=== PATIENT | female | born 1990 | race Caucasian/White ===

== ENCOUNTER 2019-01-06 01:55 | Emergency (ER) | payer BC, MEDICAID ==
[~2019-01-06] VITALS: Ht 165.1 cm; Wt 81.6 kg
[2019-01-06 01:59] VITALS: BP 164/99
--- NOTE | 2019-01-06 02:09 | NUR ---
TO ER BED 7
[2019-01-06] MEDS ORDERED: NACL 0.9% 1,000 ML IV ONE (02:10)
--- NOTE | 2019-01-06 02:24 | NUR ---
EKG PERFORMED AT BEDSIDE WITH SPOUSE PRESENT. PT COVERED IN GOWN DURING PROCEDURE.
--- NOTE | 2019-01-06 02:25 | NUR ---
28/F PRESENTS TO ED WITH GIRLFRIEND, C/O 5/10 INTERMITTENT CHEST HEAVINESS AND SOB, X3 HRS. PT REPORTS HAVING SIMILAR EPISODE BEFORE WHEN TAKING DIET PILLS. PT REPORTS DRINKING ENERGY DRINKS YESTERDAY AND TODAY. DENIES ALCOHOL OR SUBSTANCE ABUSE. PT DENIES FEVER, ABD PAIN OR DYSURIA. PT REPORTS CHILLS AND NAUSEA. PT AOX4, GCS 15, RR EVEN AND UNLABORED. LUNG SOUNDS CLEAR BL. PLACED ON MONITOR. HX HTN, ASTHMA
--- NOTE | 2019-01-06 02:25 | NUR ---
ER MD AT BEDSIDE. PT REFUSED ZOFRAN AND TORADOL DESPITE EDUCATION.
[2019-01-06 03:12] VITALS: BP 140/75
--- NOTE | 2019-01-06 03:12 | NUR ---
PT STATED THAT SHE FEELS BETTER, DENIES CP, VS NOTED, HR 84. PT REFUSED TO FINISH IVF DESPITE EDUCATION. PT INSTRUCTED TO DRINK MORE FLUIDS.
--- NOTE | 2019-01-06 03:12 | NUR ---
Patient discharged with v/s stable. Written and verbal after care instructions given and explained. Patient alert, oriented and verbalized understanding of instructions. Ambulatory with steady gait. All questions addressed prior to discharge. ID band removed. Patient advised to follow up with PMD. Rx of MOTRIN, ZOFRAN given. Patient educated on indication of medication including possible reaction and side effects. Opportunity to ask questions provided and answered.
== END 2019-01-06 03:12 | disposition home or self-care (01) ==
LOC: MED 01:55
DX: R07.9 Chest pain, unspecified (principal); R06.02 Shortness of breath; R00.2 Palpitations; J45.909 Unspecified asthma, uncomplicated; I10 Essential (primary) hypertension; F17.210 Nicotine dependence, cigarettes, uncomplicated; Z98.890 Other specified postprocedural states
CPT/HCPCS: 93005; 99283; J7030

== ENCOUNTER 2019-10-12 12:39 | Emergency (ER) | payer BC, MEDICAID ==
[~2019-10-12] VITALS: Ht 165.1 cm; Wt 90.7 kg
[2019-10-12 12:44] VITALS: BP 147/115
[2019-10-12 13:45] VITALS: BP 147/115
== END 2019-10-12 13:50 | disposition home or self-care (01) ==
LOC: MED 12:39
DX: S20.20XA Contusion of thorax, unspecified, initial encounter (principal); F41.9 Anxiety disorder, unspecified; M79.10 Myalgia, unspecified site; J45.909 Unspecified asthma, uncomplicated; I10 Essential (primary) hypertension; F17.210 Nicotine dependence, cigarettes, uncomplicated; Z98.890 Other specified postprocedural states; V49.9XXA Car occupant (driver) (passenger) injured in unspecified traffic accident, initial encounter; Y99.8 Other external cause status; Y93.89 Activity, other specified; Y92.89 Other specified places as the place of occurrence of the external cause
CPT/HCPCS: 71046; 93005; 99283

== ENCOUNTER 2021-09-17 00:53 | Emergency (ER) | payer BC, OTHER ==
[~2021-09-17] VITALS: Ht 167.6 cm; Wt 90.7 kg
[2021-09-17 01:01] VITALS: BP 181/111
--- NOTE | 2021-09-17 01:01 | NUR ---
TO CHAIR B AMBULATORY
--- NOTE | 2021-09-17 01:10 | NUR ---
SEEN AND EXAMINED BY HONORIO WITH ORDERS , CARRIED OUT
--- NOTE | 2021-09-17 01:15 | NUR ---
RT ADMINISTERING BREATHING TREATMENT
[2021-09-17] MEDS ORDERED: ALBUTEROL SULFATE/IPRATROPIU 3 ML SOL IH ONE ×3 (01:20→01:25)
[2021-09-17] MEDS ORDERED: methylPREDNISolone SS 125 MG/2 ML VIAL IVP ONE (01:25)
--- NOTE | 2021-09-17 01:25 | NUR ---
SWAB FOR KWESI , SENT TO LAB
--- NOTE | 2021-09-17 01:27 | NUR ---
MEDICATED PER ERMDS ORDER, TOLERATED WELL.
[2021-09-17 01:50] LABS: BASOPHILS % (AUTO) 0.4 % (0.0-2.0); EOSINOPHILS # (AUTO) 0.2 K/uL (0-0.4); EOSINOPHILS % (AUTO) 1.4 % (0.0-4.0); HEMATOCRIT 39.4 % (36-48); HEMOGLOBIN 13.2 g/dL (12.0-16.0); LYMPHOCYTES # (AUTO) 2.1 K/uL (2.5-16.5); MEAN CORPUSCULAR HEMOGLOBIN 31 pg (27-31); MEAN CORPUSCULAR HGB CONC 34 g/dL (33-37); MEAN CORPUSCULAR VOLUME 91.5 fL (80-94); MONOCYTES # (AUTO) 0.3 K/uL (0.8-1.0); MONOCYTES % (AUTO) 2.6 % (1.7-9.3); NEUTROPHILS # (AUTO) 9.5 K/uL (1.8-7.7); NEUTROPHILS % (AUTO) 78.6 % (42.2-75.2); PLATELET COUNT (AUTO) 275 K/uL (140-450); RED CELL DISTRIBUTION WIDTH 12.3 % (11.6-13.7); WHITE BLOOD COUNT (AUTO) 12.1 K/uL (4.8-10.8)
[2021-09-17 02:03] LABS: ANION GAP 17.8 (8-16); CARBON DIOXIDE 24.3 mmol/L (21-32); CREATININE 0.6 mg/dL (0.6-1.3); POTASSIUM 3.1 mmol/L (3.5-5.1)
[2021-09-17] MEDS ORDERED: PRED20TA5 PO (03:05)
--- NOTE | 2021-09-17 03:50 | NUR ---
ALL RESULTS BACK AND NOTED BY ERMD AND FOR D/C
[2021-09-17] MEDS ORDERED: ALBU0.0912 INH (03:59)
[2021-09-17 04:00] VITALS: BP 138/90
--- NOTE | 2021-09-17 04:00 | NUR ---
Patient discharged with v/s stable. Written and verbal after care instructions given and explained. Patient alert, oriented and verbalized understanding of instructions. Ambulatory with steady gait. All questions addressed prior to discharge. ID band removed. Patient advised to follow up with PMD. Rx of DELTASONE given. Patient educated on indication of medication including possible reaction and side effects. Opportunity to ask questions provided and answered.
== END 2021-09-17 04:00 | disposition home or self-care (01) ==
LOC: MED 00:53
DX: J45.901 Unspecified asthma with (acute) exacerbation (principal); I10 Essential (primary) hypertension; Z20.822 Contact with and (suspected) exposure to COVID-19
CPT/HCPCS: 36415; 71045; 80048; 85025; 87426; 93005; 94640; 96374; 99285; J2930

== ENCOUNTER 2022-10-19 08:40 | Emergency (ER) | payer OTHER ==
[~2022-10-19] VITALS: Ht 167.6 cm; Wt 96.3 kg
[~2022-10-19 08:40] MED LIST: ALBU0.0912 INH; PRED20TA5 PO
[2022-10-19 08:46] VITALS: BP 184/102
--- NOTE | 2022-10-19 08:52 | NUR ---
PT AMBULATED W/ STEADY GAIT TO ROOM 7
--- NOTE | 2022-10-19 08:58 | NUR ---
32YO FEMALE PT C/O N/V -BLOOD AND DIZZINESS X2DAYS. REPORTS CONSTANT ONSET OF THROBBING 6/10 HEADACHE AND BP OF 182/116 YESTERDAY W/O RELIEF AFTER TAKING ASPIRIN AND DAD RX OF LOZARTAN 100MG. STATES 1HR EPISODE OF PRESSURED 6/10 L SIDED CHEST PAIN W/O RADIATION [id number] . PT WITH HX OF HTN THAT WAS TREATED AFTER LOSING WEIGHT AND NOTES SHE HAS GAINED +40lbs IN THE LAST YEAR. PT AAOX4, AMBULATORY W/ STEADY GAIT. SKIN DRY AND FLUSHED. ON INTERNAL CONTROLS SPECIALIST. HOB POSITIONED PER COMFORT, BED AT LOWEST POSITION, BED RAIL UPX1. HX: HTN NKA
--- NOTE | 2022-10-19 09:35 | NUR ---
MD DU AT BEDSIDE
[2022-10-19] MEDS ORDERED: CLONIDINE HYDROCHLORIDE 0.1 MG TAB PO ONE (09:40)
[2022-10-19] MEDS ORDERED: KETOROLAC 60 MG/2 ML VIAL IM ONE (09:40)
[2022-10-19] MEDS ORDERED: PROCHLORPERAZINE 10 MG/2 ML VIAL IM ONE (09:40)
[2022-10-19] MEDS ORDERED: ACET-9234 PO (10:45)
[2022-10-19 10:51] VITALS: BP 134/69
--- NOTE | 2022-10-19 10:51 | NUR ---
Patient discharged with v/s stable. Written and verbal after care instructions FOR MIGRAINE HEADACHE AND HYPERTENSION given and explained. Patient alert, oriented and verbalized understanding of instructions. Ambulatory with steady gait. All questions addressed prior to discharge. ID band removed. Patient advised to follow up with PMD. Rx of FIORICET given. Opportunity to ask questions provided and answered.
--- NOTE | 2022-10-19 10:52 | NUR ---
The patient's care was reviewed and supervised by Faby Starr RN.
== END 2022-10-19 10:51 | disposition home or self-care (01) ==
LOC: MED 08:40
DX: G43.909 Migraine, unspecified, not intractable, without status migrainosus (principal); I16.0 Hypertensive urgency; J45.909 Unspecified asthma, uncomplicated; Z79.899 Other long term (current) drug therapy
CPT/HCPCS: 81002; 81025; 96372; 99284; J0780; J1885